=== PATIENT | female | born 1945 | race Caucasian/White ===

== ENCOUNTER 2018-01-06 08:25 | Observation (INO) | payer MEDICARE, BC ==
[2018-01-06] MEDS ORDERED: NITROGLYCERIN OINT 1 INCH/GM PACKET TOPICAL STA (08:52)
[2018-01-06] MEDS ORDERED: ASPIRIN 81 MG PO STA (08:52)
--- NOTE | 2018-01-06 08:55 | ED ---
General Adult HPI - General Chief complaint: Chest Pain Stated complaint: Shoulder/Chest Pain Time Seen by Provider: 01/06/18 08:42 Source: patient, family, RN notes reviewed Mode of arrival: ambulatory Limitations: no limitations - History of Present Illness Initial comments: Patient is a pleasant 72-year-old female presenting to the emergency Department with complaints of chest discomfort. Onset of symptoms was several days ago. Patient has soreness in her left upper chest and somewhat shoulder. Patient states the past day or 2 it has radiated towards the right. Discomfort is positional at times. Discomfort is otherwise very mild at this time. Patient does have some associated nausea and dyspnea. No diaphoresis. Patient has been lightheaded and dizzy. Patient has not been sleeping well. - Related Data Home Medications Medication Instructions Recorded Confirmed Cholecalciferol [Vitamin D3] 1,000 unit PO DAILY 01/06/18 01/06/18 Escitalopram [Lexapro] 10 mg PO DAILY 01/06/18 01/06/18 Ibuprofen [Motrin] 800 mg PO Q8H PRN 01/06/18 01/06/18 Naproxen Sodium [Aleve] 220 mg PO BID PRN 01/06/18 01/06/18 Temazepam [Restoril] 30 mg PO HS PRN 01/06/18 01/06/18 metFORMIN HCL [Glucophage] 500 mg PO BID 01/06/18 01/06/18 rOPINIRole HCL [Requip] 4 mg PO HS 01/06/18 01/06/18 Allergies Allergy/AdvReac Type Severity Reaction Status Date / Time Iodinated Contrast- Oral and Allergy Rash/Hives Verified 01/06/18 08:50 IV Dye Penicillins Allergy Rash/Hives Verified 01/06/18 08:50 shellfish derived [Shellfish] Allergy Rash/Hives Verified 01/06/18 08:50 morphine AdvReac Hallucinati Verified 01/06/18 08:50 ons Review of Systems ROS Statement: Those systems with pertinent positive or pertinent negative responses have been documented in the HPI. ROS Other: All systems not noted in ROS Statement are negative. Constitutional: Denies: fever Eyes: Denies: eye pain ENT: Denies: ear pain Respiratory: Reports: dyspnea Cardiovascular: Reports: chest pain Endocrine: Reports: fatigue Gastrointestinal: Reports: nausea. Denies: abdominal pain Genitourinary: Denies: dysuria Musculoskeletal: Denies: back pain Skin: Denies: rash Neurological: Denies: weakness Past Medical History Past Medical History: Diabetes Mellitus History of Any Multi-Drug Resistant Organisms: None Reported Past Surgical History: No Surgical Hx Reported Past Psychological History: Anxiety Smoking Status: Current every day smoker Past Alcohol Use History: Occasional Past Drug Use History: None Reported General Exam Limitations: no limitations General appearance: alert, in no apparent distress Head exam: Present: atraumatic Eye exam: Present: normal appearance Neck exam: Present: normal inspection Respiratory exam: Present: normal lung sounds bilaterally, chest wall tenderness (Mild tenderness left upper chest) Cardiovascular Exam: Present: regular rate, normal rhythm Expanded Peripheral pulses: 2+: Radial (R), Radial (L), Dorsalis Pedis (R), Dorsalis Pedis (L) GI/Abdominal exam: Present: soft. Absent: tenderness Extremities exam: Present: normal inspection, full ROM. Absent: tenderness Neurological exam: Present: alert Psychiatric exam: Present: normal affect, normal mood Skin exam: Present: normal color Course Vital Signs 01/06/18 08:27 Temperature 98 F Pulse Rate 62 Respiratory 20 Rate Blood Pressure 161/83 O2 Sat by Pulse 98 Oximetry EKG Findings - EKG Comments: EKG Findings:: Normal sinus rhythm 65. [place] 172. QRS 88. QT 414. QTC 4:30. Normal axis. Normal QRS. No acute ST change. Medical Decision Making - Medical Decision Making Patient reevaluated and comfortably walking to the restroom. Patient states symptoms have improved. Patient updated on results and plan. Case was discussed with Dr. Miles, who will admit with [facility] physician for hospital call. - Lab Data Result diagrams: 01/06/18 08:45 01/06/18 08:45 Lab Results 01/06/18 01/06/18 01/06/18 Range/Units 08:45 08:45 08:45 WBC 6.8 (3.8-10.6) k/uL RBC 5.47 H (3.80-5.40) m/uL Hgb 13.9 (11.4-16.0) gm/dL Hct 42.3 (34.0-46.0) % MCV 77.4 L (80.0-100.0) fL MCH 25.5 (25.0-35.0) pg MCHC 32.9 (31.0-37.0) g/dL RDW 15.4 (11.5-15.5) % Plt Count 268 (150-450) k/uL Neutrophils % 64 % Lymphocytes % 22 % Monocytes % 6 % Eosinophils % 7 % Basophils % 1 % Neutrophils # 4.3 (1.3-7.7) k/uL Lymphocytes # 1.5 (1.0-4.8) k/uL Monocytes # 0.4 (0-1.0) k/uL Eosinophils # 0.5 (0-0.7) k/uL Basophils # 0.1 (0-0.2) k/uL Microcytosis Slight PT (9.0-12.0) sec INR (<1.2) APTT (22.0-30.0) sec Sodium 141 (137-145) mmol/L Potassium 3.9 (3.5-5.1) mmol/L Chloride 104 (98-107) mmol/L Carbon Dioxide 24 (22-30) mmol/L Anion Gap 13 mmol/L BUN 12 (7-17) mg/dL Creatinine 0.63 (0.52-1.04) mg/dL Est GFR (CKD-EPI)AfAm >90 (>60 ml/min/1.73 sqM) Est GFR (CKD-EPI)NonAf 90 (>60 ml/min/1.73 sqM) Glucose 143 H (74-99) mg/dL Calcium 9.4 (8.4-10.2) mg/dL Magnesium 1.7 (1.6-2.3) mg/dL Total Bilirubin 0.3 (0.2-1.3) mg/dL AST 24 (14-36) U/L ALT 23 (9-52) U/L Alkaline Phosphatase 64 (38-126) U/L Total Creatine Kinase 64 (30-135) U/L CK-MB (CK-2) 0.6 (0.0-2.4) ng/mL CK-MB (CK-2) Rel Index 0.9 Troponin I <0.012 (0.000-0.034) ng/mL Total Protein 6.8 (6.3-8.2) g/dL Albumin 4.1 (3.5-5.0) g/dL 01/06/18 Range/Units 08:45 WBC (3.8-10.6) k/uL RBC (3.80-5.40) m/uL Hgb (11.4-16.0) gm/dL Hct (34.0-46.0) % MCV (80.0-100.0) fL MCH (25.0-35.0) pg MCHC (31.0-37.0) g/dL RDW (11.5-15.5) % Plt Count (150-450) k/uL Neutrophils % % Lymphocytes % % Monocytes % % Eosinophils % % Basophils % % Neutrophils # (1.3-7.7) k/uL Lymphocytes # (1.0-4.8) k/uL Monocytes # (0-1.0) k/uL Eosinophils # (0-0.7) k/uL Basophils # (0-0.2) k/uL Microcytosis PT 10.1 (9.0-12.0) sec INR 1.0 (<1.2) APTT 25.0 (22.0-30.0) sec Sodium (137-145) mmol/L Potassium (3.5-5.1) mmol/L Chloride (98-107) mmol/L Carbon Dioxide (22-30) mmol/L Anion Gap mmol/L BUN (7-17) mg/dL Creatinine (0.52-1.04) mg/dL Est GFR (CKD-EPI)AfAm (>60 ml/min/1.73 sqM) Est GFR (CKD-EPI)NonAf (>60 ml/min/1.73 sqM) Glucose (74-99) mg/dL Calcium (8.4-10.2) mg/dL Magnesium (1.6-2.3) mg/dL Total Bilirubin (0.2-1.3) mg/dL AST (14-36) U/L ALT (9-52) U/L Alkaline Phosphatase (38-126) U/L Total Creatine Kinase (30-135) U/L CK-MB (CK-2) (0.0-2.4) ng/mL CK-MB (CK-2) Rel Index Troponin I (0.000-0.034) ng/mL Total Protein (6.3-8.2) g/dL Albumin (3.5-5.0) g/dL - Radiology Data Radiology results: image reviewed (Chest x-ray shows cardiomegaly with no acute pulmonary process. Suspected left ventricular dilation.) Disposition Clinical Impression: Chest pain Disposition: ADMITTED IP TO THIS HOSP Referrals: Nonstaff,Physician [Primary Care Provider] - 1-2 days Decision Time: 10:30
[2018-01-06 09:07] LABS: Basophils # (A) 0.1 k/uL (0-0.2); Basophils % (A) 1 %; Eosinophils # (A) 0.5 k/uL (0-0.7); Eosinophils % (A) 7 %; HCT 42.3 % (34.0-46.0); HGB 13.9 gm/dL (11.4-16.0); Lymphocytes # (A) 1.5 k/uL (1.0-4.8); Lymphocytes % (A) 22 %; MCH 25.5 pg (25.0-35.0); MCHC 32.9 g/dL (31.0-37.0); MCV 77.4 fL (80.0-100.0); Mean Platelet Volume 6.8; Microcytosis Slight; Monocytes # (A) 0.4 k/uL (0-1.0); Monocytes % (A) 6 %; Neutrophils # (A) 4.3 k/uL (1.3-7.7); Neutrophils % (A) 64 %; Platelet Count 268 k/uL (150-450); RBC 5.47 m/uL (3.80-5.40); RDW 15.4 % (11.5-15.5); WBC 6.8 k/uL (3.8-10.6)
--- NOTE | 2018-01-06 09:12 | XR ---
EXAMINATION TYPE: XR chest 2V DATE OF EXAM: 01/06/2018 COMPARISON: NONE HISTORY: Left-sided chest pain TECHNIQUE: Frontal and lateral views of the chest are obtained. FINDINGS: There is no focal air space opacity, pleural effusion, or pneumothorax seen. The cardiac silhouette size is enlarged. On lateral view there is prominent left ventricular dilatation extending posteriorly. I also suspect right atrial dilatation with anterior bulging The osseous structures are demineralized. IMPRESSION: Cardiomegaly without acute pulmonary process. Marked LV dilatation is suspected. Conside r echo correlation.
[2018-01-06 09:17] LABS: Prothrombin Time 10.1 sec (9.0-12.0)
[2018-01-06 09:19] LABS: ALT 23 U/L (9-52); AST 24 U/L (14-36); Albumin 4.1 g/dL (3.5-5.0); Alkaline Phosphatase 64 U/L (38-126); Anion Gap 13 mmol/L; Blood Urea Nitrogen 12 mg/dL (7-17); Calcium 9.4 mg/dL (8.4-10.2); Carbon Dioxide 24 mmol/L (22-30); Chloride 104 mmol/L (98-107); Glucose 143 mg/dL (74-99); Magnesium 1.7 mg/dL (1.6-2.3); Potassium 3.9 mmol/L (3.5-5.1); Sodium 141 mmol/L (137-145); Total Bilirubin 0.3 mg/dL (0.2-1.3); Total Protein 6.8 g/dL (6.3-8.2)
[2018-01-06 09:29] LABS: Creatine Kinase 64 U/L (30-135)
[2018-01-06 09:42] LABS: Creatine Kinase MB 0.6 ng/mL (0.0-2.4); Troponin I <0.012 ng/mL (0.000-0.034)
[2018-01-06] MEDS ORDERED: NITROGLYCERIN SL TABS 0.4 MG TAB SUBLINGUAL PRN (10:30)
[2018-01-06 12:08] LABS: Glucose,Whole Blood 105 mg/dL (75-99)
[2018-01-06] MEDS ORDERED: IBUPROFEN 800 MG TAB PO PRN (14:29)
[2018-01-06] MEDS ORDERED: TEMAZEPAM 30 MG CAP PO PRN (14:29)
[2018-01-06] MEDS ORDERED: NALOXONE 0.4 MG/ML 1 ML VIAL IV PRN (14:32)
[2018-01-06] MEDS ORDERED: ONDANSETRON 4 MG/2 ML VIAL IVP PRN (14:32)
[2018-01-06] MEDS ORDERED: ACETAMINOPHEN TAB 325 MG TAB PO PRN (14:32)
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
[2018-01-06 15:28] LABS: Creatine Kinase 60 U/L (30-135)
--- NOTE | 2018-01-06 15:39 | ECHOF ---
Referral Reason:cp, eval LV MEASUREMENTS -------- HEIGHT: 167.6 cm WEIGHT: 98.0 kg BP: 161/83 RVIDd: 2.4 cm (< 3.3) IVSd: 1.0 cm (0.6 - 1.1) LVIDd: 5.1 cm (3.9 - 5.3) LVPWd: 1.1 cm (0.6 - 1.1) IVSs: 1.4 cm LVIDs: 3.8 cm LVPWs: 1.6 cm LAESV Index (A-L): 28.46 ml/m Ao Diam: 3.1 cm (2.0 - 3.7) AV Cusp: 1.6 cm (1.5 - 2.6) LA Diam: 3.9 cm (2.7 - 3.8) EPSS: 1.0 cm MV E Brian: 0.61 m/s MV DecT: 405 ms MV A Brian: 0.78 m/s MV E/A Ratio: 0.78 RAP: 5.00 mmHg RVSP: 34.33 mmHg MV EF SLOPE: 93.57 mm/s (70 - 150) MV EXCURSION: 1.73 cm (> 18.000) FINDINGS -------- Sinus rhythm. This was a technically adequate study. The left ventricular size is normal. Left ventricular wall thickness is normal. Overall left vent ricular systolic function is low-normal with, an EF between 50 - 55 %. The right ventricle is normal in size and function. Normal LA size by volume 22+/-6 ml/m2. The right atrium is normal in size. Aortic valve is trileaflet and is mildly thickened. There is no evidence of aortic regurgitation. There is no evidence of aortic stenosis. The mitral valve leaflets are mildly thickened. There is trace to mild mitral regurgitation. Mild tricuspid regurgitation present. There is borderline pulmonary hypertension. The right ventr icular systolic pressure, as measured by Doppler, is 34.33mmHg. The pulmonic valve was not well visualized. The aortic root size is normal. IVC Not well visulized. There is no pericardial effusion. CONCLUSIONS -------- 1. Sinus rhythm. 2. This was a technically adequate study. 3. The left ventricular size is normal. 4. Overall left ventricular systolic function is low-normal with, an EF between 50 - 55 %. 5. Normal LA size by volume 22+/-6 ml/m2. 6. Aortic valve is trileaflet and is mildly thickened. 7. The mitral valve leaflets are mildly thickened. 8. There is trace to mild mitral regurgitation. 9. Mild tricuspid regurgitation present. 10. There is borderline pulmonary hypertension. 11. The right ventricular systolic pressure, as measured by Doppler, is 34.33mmHg. 12. The pulmonic valve was not well visualized. 13. The aortic root size is normal. 14. IVC Not well visulized. 15. There is no pericardial effusion. FENCE MACHINE OPERATOR: Roman Kelley RDCS
[2018-01-06 15:40] LABS: Creatine Kinase MB 0.7 ng/mL (0.0-2.4); Troponin I <0.012 ng/mL (0.000-0.034)
[2018-01-06] MEDS: NITROGLYCERIN OINT 1 INCH/GM PACKET TOPICAL SCH ×2 (15:48→17:54)
[2018-01-06] MEDS ORDERED: diphenhydrAMINE 50 MG/ML 1 ML VIAL IVP STA (16:51)
[2018-01-06] MEDS ORDERED: methylPREDNISolone SOD SUCCI 125 MG/2 ML VIAL IV STA (16:51)
[2018-01-06] MEDS ORDERED: FAMOTIDINE 20 MG/2 ML VIAL IV STA (16:51)
[2018-01-06 17:20] LABS: Glucose,Whole Blood 95 mg/dL (75-99)
[2018-01-06] MEDS: ESCITALOPRAM 10 MG TAB PO SCH (17:54)
--- NOTE | 2018-01-06 18:24 | CT ---
EXAMINATION TYPE: CT angio chest DATE OF EXAM: 01/06/2018 5:49 PM COMPARISON: NONE HISTORY: Left sided chest pain and elevated d-dimer. CT DLP: 613 mGycm Automated exposure control for dose reduction was used. CONTRAST: CTA scan of the thorax is performed with IV Contrast, patient injected with 74 mL of Isovue 370, pulm onary embolism protocol. There are 3-D post processed images.. FINDINGS: The lungs are clear of consolidation. There is moderate hiatal hernia. There is no pleural effusion. There is no evidence of thoracic aortic aneurysm or dissection. There is normal contrast opacificatio n of the pulmonary arteries. I see no filling defect. There is no mediastinal adenopathy. There are n o hilar masses. There is spurring in the thoracic spine. IMPRESSION: NEGATIVE CT ANGIOGRAM OF THE CHEST. NO EVIDENCE OF PULMONARY EMBOLISM. HIATAL HERNIA. INTRATHORACIC S TOMACH.
[2018-01-06 20:40] LABS: Glucose,Whole Blood 148 mg/dL (75-99)
[2018-01-06] MEDS ORDERED: rOPINIRole HCL 4 MG TABLET PO SCH (21:00)
[2018-01-06] MEDS ORDERED: ATORVASTATIN 40 MG TAB PO SCH (21:00)
[2018-01-06 21:05] LABS: Creatine Kinase 72 U/L (30-135)
[2018-01-06] MEDS: INSULIN ASPART 100 UNIT/ML 1 ML 10 ML VIAL SQ SCH (21:07)
[2018-01-06] MEDS: FAMOTIDINE 20 MG TAB PO SCH (21:07)
[2018-01-06 21:14] LABS: Creatine Kinase MB 0.8 ng/mL (0.0-2.4); Troponin I <0.012 ng/mL (0.000-0.034)
[2018-01-07] MEDS: NITROGLYCERIN OINT 1 INCH/GM PACKET TOPICAL SCH (00:42)
[2018-01-07 06:28] LABS: Basophils % (A) 0 %; Eosinophils # (A) 0.1 k/uL (0-0.7); Eosinophils % (A) 1 %; HCT 43.3 % (34.0-46.0); HGB 13.8 gm/dL (11.4-16.0); Lymphocytes # (A) 0.8 k/uL (1.0-4.8); Lymphocytes % (A) 8 %; MCH 24.5 pg (25.0-35.0); MCHC 31.8 g/dL (31.0-37.0); MCV 77.1 fL (80.0-100.0); Mean Platelet Volume 6.6; Microcytosis Slight; Monocytes # (A) 0.2 k/uL (0-1.0); Monocytes % (A) 2 %; Neutrophils # (A) 8.1 k/uL (1.3-7.7); Neutrophils % (A) 88 %; Platelet Count 296 k/uL (150-450); RBC 5.61 m/uL (3.80-5.40); RDW 15.2 % (11.5-15.5); WBC 9.1 k/uL (3.8-10.6)
[2018-01-07 06:40] LABS: Glucose,Whole Blood 159 mg/dL (75-99)
[2018-01-07 06:44] LABS: ALT 22 U/L (9-52); AST 23 U/L (14-36); Albumin 4.1 g/dL (3.5-5.0); Alkaline Phosphatase 59 U/L (38-126); Anion Gap 11 mmol/L; Blood Urea Nitrogen 12 mg/dL (7-17); Calcium 9.7 mg/dL (8.4-10.2); Carbon Dioxide 24 mmol/L (22-30); Chloride 105 mmol/L (98-107); Cholesterol 254 mg/dL (<200); Glucose 152 mg/dL (74-99); HDL Cholesterol 46 mg/dL (40-60); LDL Cholesterol,Calculated 190 mg/dL (0-99); Potassium 4.4 mmol/L (3.5-5.1); Sodium 140 mmol/L (137-145); Total Bilirubin 0.3 mg/dL (0.2-1.3); Total Protein 6.8 g/dL (6.3-8.2); Triglycerides 88 mg/dL (<150)
[2018-01-07] MEDS ORDERED: INSULIN ASPART 100 UNIT/ML 1 ML 10 ML VIAL SQ SCH (07:30)
[2018-01-07 07:37] VITALS: RESP 16
[2018-01-07] MEDS ORDERED: AMINOPHYLLINE 500 MG/20 ML VIAL IV PRN (08:00)
[2018-01-07] MEDS ORDERED: REGADENOSON 0.4 MG/5 ML SYRINGE IV ONE (08:00)
[2018-01-07] MEDS ORDERED: ASPIRIN 325 MG TAB PO SCH (09:00)
[2018-01-07] MEDS ORDERED: ASPIRIN 81 MG PO SCH (09:00)
[2018-01-07] MEDS: INSULIN ASPART 100 UNIT/ML 1 ML 10 ML VIAL SQ SCH ×2 (10:19→12:46)
--- NOTE | 2018-01-07 10:28 | P.PN ---
Subjective Mrs. Brandon is a pleasant 72-year-old female past medical history significant for diabetes mellitus, fibromyalgia, gastroesophageal reflux disease , anxiety, depression and chronic tobacco use. She denies history of coronary artery disease, hypertension or dyslipidemia. We have been asked to see her in consultation for chest pain. She states yesterday she started experiencing a pressure sensation in the mid-sternal region that radiated around the precordial area and in the left arm. She had associated shortness of breath with exertion and intermittent nausea. Denies palpitations, vomiting, diaphoresis or dizziness. She does recall over the last few months feeling dizzy with position changes and nausea more frequently. The pain in her arm seems to be worse with use and the pain radiates down from the left shoulder with use of the arm. At the time of my exam she is pain free and in no acute distress. She also verbalized she is under significant stress with an ill daughter who has required 4 brain surgeries. EKG reveals sinus mechanism with no acute ST or T-wave abnormalities noted. Chest xray is negative for an acute cardiopulmonary process. Cardiomegaly noted and market LV dilation is suspected. Laboratory data reviewed, hemoglobin 13.9, platelets 268, sodium 141, potassium 3.9, magnesium 1.7, creatinine 0.63, GFR 90, cardiac enzymes negative 1. Current medications include Requip, Glucophage, Restoril, Lexapro and vitamin D supplementation. There are no old records to review. 01/07/2018 Patient is seen and examined sitting up in bed. She denies any further symptoms of chest pain or shortness of breath. Cardiac enzymes negative x3, telemetry tracings have been unremarkable. Echocardiogram performed reveals preserved LV systolic function with EF 50-55% with borderline pulmonary hypertension RVSP 34.33 mmHg. Blood pressure 139/77 heart rate 62 afebrile and maintaining oxygen saturation on room air. Hgb 13.8, plt 296, sodium 140, potassium 4.4, creatinine 0.53, LDL 190, HDL 46, triglycerides 88, total cholesterol 254. Objective - Vital Signs Vital signs: Vital Signs Temp 98.2 F 01/07/18 07:36 Pulse 62 01/07/18 07:36 Resp 16 01/07/18 07:36 BP 139/77 01/07/18 07:36 Pulse Ox 92 L 01/07/18 07:36 Intake & Output 01/06/18 01/07/18 01/07/18 18:59 06:59 18:59 Intake Total 640 Balance 640 Weight 99.4 kg Intake: Oral 640 Other: Voiding Method Toilet Toilet Toilet - Exam GENERAL: Well-appearing, well-nourished and in no acute distress. NECK: Supple without JVD or thyromegaly. LUNGS: Breath sounds clear to auscultation bilaterally. Respiration equal and unlabored. No wheezes, rales or rhonchi. HEART: Regular rate and rhythm without murmurs, rubs or gallops. S1 and S2 heard. EXTREMITIES: Normal range of motion, no edema. No clubbing or cyanosis. Peripheral pulses intact and strong. - Labs CBC & Chem 7: 01/07/18 06:12 01/07/18 06:12 Labs: Abnormal Lab Results - Last 24 Hours (Table) 01/06/18 01/06/18 01/06/18 Range/Units 12:06 15:16 20:39 RBC (3.80-5.40) m/uL MCV (80.0-100.0) fL MCH (25.0-35.0) pg Neutrophils # (1.3-7.7) k/uL Lymphocytes # (1.0-4.8) k/uL D-Dimer 9.07 H (<0.60) mg/L FEU Glucose (74-99) mg/dL POC Glucose (mg/dL) 105 H 148 H (75-99) mg/dL Cholesterol (<200) mg/dL LDL Cholesterol, Calc (0-99) mg/dL 01/07/18 01/07/18 01/07/18 Range/Units 06:12 06:12 06:35 RBC 5.61 H (3.80-5.40) m/uL MCV 77.1 L (80.0-100.0) fL MCH 24.5 L (25.0-35.0) pg Neutrophils # 8.1 H (1.3-7.7) k/uL Lymphocytes # 0.8 L (1.0-4.8) k/uL D-Dimer (<0.60) mg/L FEU Glucose 152 H (74-99) mg/dL POC Glucose (mg/dL) 159 H (75-99) mg/dL Cholesterol 254 H (<200) mg/dL LDL Cholesterol, Calc 190 H (0-99) mg/dL Assessment and Plan Assessment: ASSESSMENT 1. Chest pain, atypical. Initial EKG shows no evidence of acute ischemia. 2. Diabetes mellitus 3. Gastroesophageal reflux disease 4. Firbomyalgia 5. Chronic nicotine dependence 6. Dyslipidemia PLAN Proceed with Lexiscan stress test. If normal she is stable from a cardiac perspective. Initiate on atorvastatin 40 mg daily for dyslipidemia. Follow up with Dr. Andersen in 2 weeks if stress test is negative. If positive we will consider coronary angiography. Nurse Practitioner note has been reviewed, I agree with a documented findings and plan of care. Patient was seen and examined.
[2018-01-07] MEDS: FAMOTIDINE 20 MG TAB PO SCH (10:53)
[2018-01-07] MEDS: ESCITALOPRAM 10 MG TAB PO SCH (10:55)
--- NOTE | 2018-01-07 11:08 | NM ---
EXAMINATION TYPE: NM stress lexiscan cardiolite DATE OF EXAM: 01/07/2018 COMPARISON: NONE HISTORY: Chest pain TECHNIQUE: After the intravenous administration of 10.45 mCi Tc 99m Sestamibi - Cardiolite resting S PECT images acquired 60 minutes post injection. The patient received 0.4mg Lexiscan, 25.4 mCi Tc 99m Sestamibi - Stress images obtained [address] injection FINDINGS: Review of stress and rest SPECT images demonstrates fixed defects in the distribution of the left ant erior coronary artery within the anterior wall and septal wall. Additional 2-3 segment mild reversibl e defect is seen on stress imaging only in the distribution of the left circumflex coronary artery al hussein the inferolateral wall. Gated analysis shows normal wall motion with an estimated left ventricul ar ejection fraction of 53 %. TID is slightly elevated to upper limits of normal calculated at 1.25. IMPRESSION: 1. Reversible defect indicating ischemia, mild defect approximately 2-3 segments in size, in the dist ribution of the left circumflex coronary artery. 2. Slightly abnormal transient ischemic dilatation value that can be seen in cardiomyopathy or balanc ed 3 vessel cardiac ischemia. 3. Fixed defect in the distribution of the left anterior descending coronary artery from prior infarc t. A Yellow level critical message alert has been initiated for Zohaib Boyd MD via the [employer] Critical Results System on 01/07/2018 11:05 AM. This message alert has been sent to Zohaib Boyd MD via the preferences provided by the clinician for the receipt of Radiology Critical Findings. [employer] age ID [id number].
[2018-01-07 11:51] VITALS: BP 164/76; PULSE 64; TEMP 98.1
[2018-01-07] MEDS ORDERED: CHOLECALCIFEROL 1,000 UNIT TAB PO SCH (12:00)
[2018-01-07 12:25] LABS: Glucose,Whole Blood 163 mg/dL (75-99)
--- NOTE | 2018-01-07 13:44 | P.PN ---
Progress Note - Text Lexiscan stress test reveals reversible defect in the distribution of the circumflex artery and fixed defect in the distribution of the LAD. Dr. Andersen has reviewed the films as well. We have recommended she undergo cardiac catheterization to further assess the coronary arteries. This has been explained to the patient in detail and questions have been answered appropriately. She is declining to move forward and would like to go home and think about this and possibly obtain a second opinion. Risks of leaving without proceeding have been explained to her in detail. She understands the risks of leaving and still wished to go home. Prescription has been given for SL nitroglycerin with instructions for use. Advised to return to ED if she feels any symptoms of chest pain or increasing shortness of breath. I have requested to call her daughter and she has declined.
--- NOTE | 2018-01-07 13:46 | P.STRESS ---
- Stress Test Note Stress Test Results/Findings: Exam Performed: NM stress lexiscan cardiolite Exam Date: 01/07/18 Reason for Exam: Chest Pain Height: 5 ft 6 in Weight: 99.4 kg Protocol: Amie Scan Stage: na Duration of Exercise: na Resting Heart Rate: 60 Resting Blood Pressure: 130/71 Maximum Achieved Heart Rate: 91 Maximum Achieved Blood Pressure: 141/80 85% PMHR: na 100% PMHR: na METS: na Technologist Comment: Stress Test Results/Findings: This is a 72-year-old female was admitted to the hospital with chest pain. History of smoking and diabetes. Baseline EKG showed a sinus rhythm with small NM interval and QRS duration. Blood pressure at rest is 130/70 with pulse rate of 60. A standard dose of Lexiscan was infused. EKGs taken during or after the infusion did not reveal any changes to suggest ischemia. Final impression: #1. Negative Lexiscan stress test #2. Report on the nuclear images to begin by the radiologist.
[2018-01-07 13:49] LABS: Hemoglobin A1C 6.5 % (4.0-6.0)
--- NOTE | 2018-01-07 16:52 | P.DS ---
Providers Date of admission: 01/06/18 10:30 Attending physician: Augustina Miles MD Admitted to the hospital with a chest pain and that is all the patient did have a computed tomography scan of the chest was negative for PE stress test was abnormal Patient did not want to proceed further with testing and left against medical advise Initially the patient was examined in the morning before before leaving AMA Physical he was stableConstitutional: No acute distress, conversant, pleasant Eyes: Anicteric sclerae, moist conjunctiva, no lid-lag PERRLA ENMT: NC/AT Oropharynx clear, no erythema, exudates Neck: Supple, Lungs: Clear to auscultation Cardiovascular: Heart regular in rate and rhythm, No murmurs, gallops, or rubs No peripheral edema Abdominal: Soft Nontender, no guarding, rebound or rigidity Abdomen moving with respiration Skin: Normal temperature, tone, texture, turgor No induration No subcutaneous nodules No rash, lesions No ulcers Extremities: No digital cyanosis No clubbing Pedal pulses intact and symmetrical Radial pulses intact and symmetrical Normal gait and station No calf tenderness Psychiatric:Alert and oriented to person, place and time Appropriate affect Intact judgement Neuro: No focal weakness Assessment and plan chest pain Abnormal stress test Patient left AGAINST MEDICAL ADVICE Consults: 01/06/18 10:30 Consult Physician Urgent Consulting Provider: Zohaib Boyd Consult Reason/Comments: cp Do you want consulting provider notified?: Yes Primary care physician: Physician Nonstaff Plan - Discharge Summary Discharge Rx Participant: No New Discharge Prescriptions: No Action Naproxen Sodium [Aleve] 220 mg PO BID PRN PRN Reason: Pain Cholecalciferol [Vitamin D3] 1,000 unit PO DAILY rOPINIRole HCL [Requip] 4 mg PO HS metFORMIN HCL [Glucophage] 500 mg PO BID Temazepam [Restoril] 30 mg PO HS PRN PRN Reason: Insomnia Ibuprofen [Motrin] 800 mg PO Q8H PRN PRN Reason: Pain Escitalopram [Lexapro] 10 mg PO DAILY Discharge Medication List Cholecalciferol [Vitamin D3] 1,000 unit PO DAILY 01/06/18 [History] Escitalopram [Lexapro] 10 mg PO DAILY 01/06/18 [History] Ibuprofen [Motrin] 800 mg PO Q8H PRN 01/06/18 [History] Naproxen Sodium [Aleve] 220 mg PO BID PRN 01/06/18 [History] Temazepam [Restoril] 30 mg PO HS PRN 01/06/18 [History] metFORMIN HCL [Glucophage] 500 mg PO BID 01/06/18 [History] rOPINIRole HCL [Requip] 4 mg PO HS 01/06/18 [History] Follow up Appointment(s)/Referral(s): Nonstaff,Physician [Primary Care Provider] - 1-2 days Discharge Disposition: HOME SELF-CARE
--- NOTE | 2018-01-12 10:43 | EST ---
Stress Test Results/Findings: Exam Performed: NM stress lexiscan cardiolite Exam Date: 01/07/18 Reason for Exam: Chest Pain Height: 5 ft 6 in Weight: 99.4 kg Protocol: Amie Scan Stage: na Duration of Exercise: na Resting Heart Rate: 60 Resting Blood Pressure: 130/71 Maximum Achieved Heart Rate: 91 Maximum Achieved Blood Pressure: 141/80 85% PMHR: na 100% PMHR: na METS: na Technologist Comment: Stress Test Results/Findings: This is a 72-year-old female was admitted to the hospital with chest pain. History of smoking and diabetes. Baseline EKG showed a sinus rhythm with small WA interval and QRS duration. Blood pressure at rest is 130/70 with pulse rate of 60. A standard dose of Lexiscan was infused. EKGs taken during or after the infusion did not reveal any changes to suggest ischemia. Final impression: #1. Negative Lexiscan stress test #2. Report on the nuclear images to begin by the radiologist. GHULAM
== END 2018-01-07 13:23 | disposition home or self-care (01) ==
LOC: EC 08:25 → 3OBS 10:30
PROVIDERS: ADMIT Internal Medicine; ATTEND Internal Medicine
DX: R07.89 Other chest pain (principal); R42 Dizziness and giddiness; R11.0 Nausea; R06.00 Dyspnea, unspecified; R94.39 Abnormal result of other cardiovascular function study; I51.7 Cardiomegaly; E11.9 Type 2 diabetes mellitus without complications; M79.7 Fibromyalgia; F41.9 Anxiety disorder, unspecified; K21.9 Gastro-esophageal reflux disease without esophagitis; G25.81 Restless legs syndrome; K44.9 Diaphragmatic hernia without obstruction or gangrene; F32.9 Major depressive disorder, single episode, unspecified; E78.5 Hyperlipidemia, unspecified; M15.9 Polyosteoarthritis, unspecified; E66.9 Obesity, unspecified; Z68.35 Body mass index [BMI] 35.0-35.9, adult; F17.200 Nicotine dependence, unspecified, uncomplicated; Z90.49 Acquired absence of other specified parts of digestive tract; Z90.710 Acquired absence of both cervix and uterus; Z79.4 Long term (current) use of insulin; Z79.899 Other long term (current) drug therapy; Z91.041 Radiographic dye allergy status; Z88.5 Allergy status to narcotic agent; Z88.0 Allergy status to penicillin; Z91.013 Allergy to seafood; Z82.0 Family history of epilepsy and other diseases of the nervous system
CPT/HCPCS: 99285 ×2; 96374; 96375; 36415; 93005; 93017; 93306; 85379; 80061; 80053 ×2; 82550; 82553; 83735; 84484; 85025 ×2; 85610; 85730; 83036; 71046; 71275; 78452; G0378 ×2; A9500; J1200; J2930; J2785; Q9967

== ENCOUNTER 2019-09-16 14:16 | Emergency (ER) | payer MEDICARE, BC ==
[2019-09-16] MEDS ORDERED: PANTOPRAZOLE 40 MG/10 ML VIAL IVP STA (14:36)
[2019-09-16] MEDS ORDERED: SODIUM CHLORIDE 0.9% 1,000 ML IV STA ×2 (14:36)
[2019-09-16] MEDS ORDERED: ONDANSETRON 4 MG/2 ML VIAL IVP STA (14:36)
[2019-09-16] MEDS ORDERED: KETOROLAC 30 MG/ML 1 ML VIAL IVP STA (14:36)
[2019-09-16] MEDS ORDERED: MORPHINE SULFATE 4 MG/ML SYRINGE IV STA (14:36)
[2019-09-16] MEDS ORDERED: HYDROmorphone 1 MG/ML 1 ML SYRINGE IVP STA ×2 (15:05→16:41)
[2019-09-16 15:13] LABS: Basophils % (A) 0 %; Eosinophils # (A) 0.1 k/uL (0-0.7); Eosinophils % (A) 1 %; HCT 45.5 % (34.0-46.0); HGB 14.2 gm/dL (11.4-16.0); Lymphocytes % (A) 8 %; MCH 24.6 pg (25.0-35.0); MCHC 31.3 g/dL (31.0-37.0); MCV 78.7 fL (80.0-100.0); Mean Platelet Volume 7.6; Monocytes # (A) 0.5 k/uL (0-1.0); Monocytes % (A) 4 %; Neutrophils # (A) 10.4 k/uL (1.3-7.7); Neutrophils % (A) 85 %; Platelet Count 318 k/uL (150-450); RBC 5.78 m/uL (3.80-5.40); RDW 14.8 % (11.5-15.5); WBC 12.2 k/uL (3.8-10.6)
[2019-09-16 15:24] LABS: ALT 12 U/L (4-34); AST 34 U/L (14-36); African American GFR (CKD) >90 (>60 ml/min/1.73 sqM); Albumin 4.1 g/dL (3.5-5.0); Alkaline Phosphatase 81 U/L (38-126); Amylase 37 U/L (30-110); Anion Gap 6 mmol/L; Blood Urea Nitrogen 16 mg/dL (7-17); Calcium 9.1 mg/dL (8.4-10.2); Carbon Dioxide 29 mmol/L (22-30); Chloride 103 mmol/L (98-107); Glucose 133 mg/dL (74-99); Non-African American GFR(CKD) 89 (>60 ml/min/1.73 sqM); Partial Thromboplastin Time 24.7 sec (22.0-30.0); Potassium 3.4 mmol/L (3.5-5.1); Sodium 138 mmol/L (137-145); Total Bilirubin 0.5 mg/dL (0.2-1.3); Total Protein 7.1 g/dL (6.3-8.2)
[2019-09-16 15:44] LABS: Appearance,Urine Cloudy (Clear); Bacteria,Urine Rare /hpf; Bilirubin,Urine Negative (Negative); Blood,Urine Moderate (Negative); Calcium Oxalate Crystals,Urine Occasional /hpf; Color,Urine Yellow; Glucose,Urine (UA) Negative (Negative); Ketones,Urine Trace (Negative); Leukocyte Esterase,Urine Moderate (Negative); Mucus,Urine Many /hpf; Nitrite,Urine Negative (Negative); PH, Urine 5.5 (5.0-8.0); Protein,Urine 1+ (Negative); RBC,Urine 123 /hpf (0-5); Specific Gravity,Urine 1.028 (1.001-1.035); Squamous Epithelial Cell,Urine 5 /hpf (0-4); WBC,Urine 33 /hpf (0-5)
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
--- NOTE | 2019-09-16 16:19 | CT ---
EXAMINATION TYPE: CT abdomen pelvis wo con DATE OF EXAM: 09/16/2019 COMPARISON: None HISTORY: Lt side abdomen pain, hx kidney stone. CT DLP: 1078.4 mGycm Automated exposure control for dose reduction was used. Multiple axial sections were obtained from the diaphragm to the floor the pelvis without contrast. There is mild atelectasis at the lung bases. There is very large hiatal hernia. There is intrathoraci c stomach. Spleen is intact. There is no pancreatic mass. Liver shows no focal defect. There are clip s from cholecystectomy. There is no adrenal mass. The kidneys show normal size. There is bilateral mild hydronephrosis. Right ureter is not dilated. There is 1 mm calculus posterior left kidney. There is 3 mm calculus proximal left ureter. There is no retroperitoneal adenopathy. Bladder distends smoothly. There is no inguinal hernia. There is no free fluid in the pelvis. There is hysterectomy. There are spondylotic changes in the lumbar spine with L4-5 disc space narrowing. There is 10% mild c ompression deformity of L4. The bony pelvis is intact. Appendix is not seen. There is no sign of thickened appendix. There is no mesenteric edema. There is no ascites or free air. There is no bowel obstruction. IMPRESSION: Obstructing calculus proximal left ureter with left-sided hydronephrosis. Mild right-sided hydronephr osis without evidence of ureteral obstruction. Small left renal calculus. Interstitial infiltrates and atelectasis at the posterior lung bases. Very large hiatal hernia.
[2019-09-16] MEDS ORDERED: TAMSULOSIN 0.4 MG CAP.ER.24H PO STA (16:25)
[2019-09-16] MEDS ORDERED: cefTRIAXone IN SWFI 1,000 MG/10 ML SYRINGE IVP STA (16:45)
[2019-09-16 16:56] VITALS: RESP 16
[2019-09-16 17:17] VITALS: BP 134/88; PULSE 68; TEMP 98
== END 2019-09-16 17:10 | disposition home or self-care (01) ==
LOC: EC 14:16
DX: N20.1 Calculus of ureter (principal); F32.9 Major depressive disorder, single episode, unspecified; F41.9 Anxiety disorder, unspecified; R47.1 Dysarthria and anarthria; M79.7 Fibromyalgia; M19.90 Unspecified osteoarthritis, unspecified site; E11.9 Type 2 diabetes mellitus without complications; F17.200 Nicotine dependence, unspecified, uncomplicated; Z88.0 Allergy status to penicillin; Z88.5 Allergy status to narcotic agent; Z91.013 Allergy to seafood; Z91.041 Radiographic dye allergy status; Z79.1 Long term (current) use of non-steroidal anti-inflammatories (NSAID); Z79.84 Long term (current) use of oral hypoglycemic drugs; Z79.899 Other long term (current) drug therapy; Z85.828 Personal history of other malignant neoplasm of skin; Z90.49 Acquired absence of other specified parts of digestive tract; Z53.29 Procedure and treatment not carried out because of patient's decision for other reasons
CPT/HCPCS: 99285 ×2; 96374 ×2; 96375 ×5; 96376 ×2; 96361 ×3; 36415; 93005; 80053; 82150; 83605; 83690; 85025; 85610; 85730; 81001; 87040; 87086; 74176; J2405; J0696; J1885; J1170; C9113

== ENCOUNTER 2024-01-31 18:47 | Emergency (ER) | payer MEDICARE, BC ==
[2024-01-31 19:19] VITALS: BP 161/96; PULSE 103; RESP 20; TEMP 98.2
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
[2024-01-31 20:01] LABS: Anisocytosis Slight; Basophils % (A) 0 %; Eosinophils % (A) 0 %; HCT 46.6 % (34.0-46.0); HGB 15.3 gm/dL (11.4-16.0); Lymphocytes # (A) 1.4 k/uL (1.0-4.8); Lymphocytes % (A) 14 %; MCHC 32.9 g/dL (31.0-37.0); MCV 88.1 fL (80.0-100.0); Mean Platelet Volume 7.8; Monocytes # (A) 0.5 k/uL (0-1.0); Monocytes % (A) 5 %; Neutrophils # (A) 7.8 k/uL (1.3-7.7); Neutrophils % (A) 79 %; Platelet Count 281 k/uL (150-450); RBC 5.29 m/uL (3.80-5.40); RDW 16.2 % (11.5-15.5)
[2024-01-31 20:19] LABS: ALT 8 U/L (4-34); AST 27 U/L (14-36); African American GFR (CKD) >90 (>60 ml/min/1.73 sqM); Albumin 4.6 g/dL (3.5-5.0); Alkaline Phosphatase 73 U/L (38-126); Anion Gap 13 mmol/L; Blood Urea Nitrogen 14 mg/dL (7-17); Calcium 9.7 mg/dL (8.4-10.2); Carbon Dioxide 17 mmol/L (22-30); Chloride 107 mmol/L (98-107); Glucose 120 mg/dL (74-99); Non-African American GFR(CKD) >90 (>60 ml/min/1.73 sqM); Potassium 3.6 mmol/L (3.5-5.1); Sodium 137 mmol/L (137-145); Total Bilirubin 0.9 mg/dL (0.2-1.3); Total Protein 7.3 g/dL (6.3-8.2)
--- NOTE | 2024-01-31 20:38 | CT ---
EXAMINATION TYPE: CT abdomen pelvis wo con DATE OF EXAM: 01/31/2024 COMPARISON: 09/16/2019 INDICATION: Unable to urinate, abdominal pain and gas x 4 days. DLP: 755.4 mGycm, Automated exposure control for dose reduction was used. CONTRAST: 0 mL of Isovue 300. Study performed without Oral Contrast TECHNIQUE: Axial images were obtained from above the diaphragm to the pubic rami in the axial plane a t 5 mm thick sections. Reconstructed images are reviewed on the computer in the coronal plane. FINDINGS: Limited CT sections are obtained the lung bases. There is a large hernia within the posterior space may be Bochdalek hernia. Lung bases are clear. CT ABDOMEN: Liver: Normal Spleen: Normal Pancreas: Moderately atrophic Adrenal glands: The adrenal glands are normal. Gallbladder: Surgically absent Kidneys: No masses are evident. No hydronephrosis is present. No cysts are present. No renal calci fications are evident. Aorta: Vascular calcification is within the aorta. Inferior vena cava: Normal. CT PELVIS: Left hip prosthesis present Loops of bowel within the abdomen and pelvis are normal. This study is a without oral contrast li miting bowel evaluation Appendix: Normal as visualized. Urinary bladder: Normal. Genitourinary structures: Uterus and ovaries are not identified Osseous structures: No suspicious lytic or sclerotic lesions. IMPRESSION: 1. Posterior diaphragmatic hernia with stomach herniated into the posterior portion of the thorax. 2.
[2024-01-31 20:58] LABS: Appearance,Urine Clear (Clear); Bacteria,Urine Rare /hpf; Bilirubin,Urine Negative (Negative); Blood,Urine Moderate (Negative); Calcium Oxalate Crystals,Urine Rare /hpf; Color,Urine Light Yellow; Glucose,Urine (UA) Negative (Negative); Hyaline Casts,Urine 4 /lpf (0-2); Ketones,Urine 1+ (Negative); Leukocyte Esterase,Urine Small (Negative); Mucus,Urine Occasional /hpf; Nitrite,Urine Negative (Negative); Protein,Urine Negative (Negative); RBC,Urine 17 /hpf (0-5); Specific Gravity,Urine 1.009 (1.001-1.035); Squamous Epithelial Cell,Urine 4 /hpf (0-4); Urobilinogen,Urine <2.0 mg/dL (<2.0); WBC,Urine 5 /hpf (0-5)
== END 2024-01-31 23:02 | disposition left against medical advice (07) ==
LOC: EC 18:47
DX: R30.0 Dysuria (principal); Z88.5 Allergy status to narcotic agent; Z88.0 Allergy status to penicillin; Z91.041 Radiographic dye allergy status
CPT/HCPCS: 36415; 74176; 80053; 81001; 85025; 99284